=== PATIENT | male | born 1980 | race Caucasian/White ===

== ENCOUNTER 2017-09-29 11:25 | Inpatient (IN) | payer OTHER ==
[2017-09-29 12:39] VITALS: BMI 21.2
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
[2017-09-29] MEDS ORDERED: LOPERAMIDE HCL 2 MG CAPSULE PO PRN (14:46)
[2017-09-29] MEDS ORDERED: MAGNESIUM HYDROX 2400MG/30ML ORAL SUSPENSION 30 ML CUP PO PRN (14:46)
[2017-09-29] MEDS ORDERED: P-EPHED 60MG/TRIPROLIDI 2.5MG TABLET PO PRN (14:46)
[2017-09-29] MEDS ORDERED: MENTHOL/PHENOL 1 EACH UD MM PRN (14:46)
[2017-09-29] MEDS ORDERED: MAGNESIUM CITRATE 300 ML BOTTLE PO PRN (14:46)
[2017-09-29] MEDS ORDERED: IBUPROFEN 400 MG TABLET (FP) PO PRN (14:46)
[2017-09-29] MEDS ORDERED: NICOTINE POLACRILEX 2 MG GUM BUC PRN (14:46)
[2017-09-29] MEDS ORDERED: ACETAMINOPHEN 325 MG TABLET (FP) PO PRN (14:46)
[2017-09-29] MEDS ORDERED: guaiFENesin/D-METHORPHAN HB 10 ML UNIT-DOSE CUPS PO PRN (14:46)
[2017-09-29] MEDS ORDERED: MAG HYDROX/AL HYDROX/SIMETH 30 ML UNIT-DOSE CUP PO PRN (14:46)
[2017-09-29] MEDS ORDERED: IBUPROFEN 600 MG TABLET (FP) PO PRN (14:51)
[2017-09-29] MEDS ORDERED: METHADONE HCL 10 MG TABLET (FOR DETOX USE ONLY) PO ONE ×2 (15:45→23:00)
[2017-09-29] MEDS ORDERED: diazePAM 5 MG TABLET PO ONE (15:45)
[2017-09-29] MEDS: NICOTINE 14 MG/24 HOURS TOPICAL PATCH TD SCH (17:37)
[2017-09-29] MEDS: CEPHALEXIN MONOHYDRATE 500 MG CAPSULE (UD) PO SCH ×2 (17:39→23:02)
[2017-09-29] MEDS ORDERED: MELATONIN 5 MG TABLETS PO PRN (22:00)
[2017-09-29] MEDS: THIAMINE HCL 100 MG TABLET (FP) PO SCH (22:26)
[2017-09-29] MEDS: GABAPENTIN 400 MG CAPSULE (FP) PO SCH (22:27)
[2017-09-29] MEDS: diazePAM 5 MG TABLET PO SCH (22:27)
[2017-09-30 02:34] LABS: URINE APPEARANCE CLEAR; URINE BILIRUBIN NEGATIVE (<2.0 mg/dL); URINE COLOR YELLOW; URINE GLUCOSE (UA) NEGATIVE (NEGATIVE); URINE KETONE NEGATIVE (NEGATIVE); URINE LEUK ESTERASE NEGATIVE (NEGATIVE); URINE NITRITE NEGATIVE (NEGATIVE); URINE PROTEIN NEGATIVE (NEGATIVE); URINE UROBILINOGEN NEGATIVE mg/dL (0.2-1.0)
[2017-09-30] MEDS: GABAPENTIN 400 MG CAPSULE (FP) PO SCH ×3 (05:43→22:03)
[2017-09-30] MEDS: diazePAM 5 MG TABLET PO SCH ×3 (05:43→22:04)
[2017-09-30] MEDS: CEPHALEXIN MONOHYDRATE 500 MG CAPSULE (UD) PO SCH ×3 (08:00→23:42)
[2017-09-30] MEDS ORDERED: METHADONE HCL 10 MG TABLET (FOR DETOX USE ONLY) PO SCH (10:00)
[2017-09-30 10:04] LABS: HEMATOCRIT 40.5 % (35.4-49); HEMOGLOBIN 13.5 GM/dL (11.7-16.9); MCH 30.5 pg (25.7-33.7); MCHC 33.4 g/dl (32.0-35.9); MEAN CELL VOLUME 91.2 fl (80-96); MEAN PLT VOLUME 8.9 fl (7.5-11.1); PLATELET COUNT 223 K/MM3 (134-434); RBC 4.44 M/mm3 (4.00-5.60); RDW 13.7 % (11.9-15.9); WHITE BLOOD COUNT 8.4 K/mm3 (4.0-10.0)
[2017-09-30] MEDS: PRENATAL VITAMINS W/ FOLIC ACID TABLET (FP) PO SCH (10:07)
[2017-09-30] MEDS: NICOTINE 14 MG/24 HOURS TOPICAL PATCH TD SCH (10:09)
[2017-09-30] MEDS: diazePAM 5 MG TABLET PO PRN ×2 (10:09→20:56)
--- NOTE | 2017-09-30 10:21 | EKG ---
Test Reason : Blood Pressure : / mmHG Vent. Rate : 057 BPM Atrial Rate : 057 BPM P-R Int : 000 ms QRS Dur : 096 ms QT Int : 414 ms P-R-T Axes : 000 054 051 degrees QTc Int : 402 ms SINUS BRADYCARDIA WITH PREMATURE ATRIAL COMPLEXES IN A PATTERN OF BIGEMINY NO PREVIOUS ECGS AVAILABLE Confirmed by LUCILA SHEIKH MD ([id number]) on 09/30/2017 10:21:44 AM Referred By: Confirmed By:LUCILA SHEIKH MD
[2017-09-30 10:25] LABS: CHLORIDE 108 mmol/L (98-107); POTASSIUM 4.4 mmol/L (3.5-5.1); SODIUM 142 mmol/L (136-145)
[2017-09-30 10:49] LABS: ALBUMIN 3.3 g/dl (3.4-5.0); ALK PHOS 100 U/L (45-117); ANION GAP 8 (8-16); BILIRUBIN,TOTAL 0.4 mg/dL (0.2-1.0); BLOOD UREA NITROGEN 10 mg/dL (7-18); CALCIUM 8.4 mg/dL (8.5-10.1); CO2 26 mmol/L (21-32); CREATININE 0.9 mg/dL (0.7-1.3); GLUCOSE,RANDOM 110 mg/dL (74-106); SGOT/AST 30 U/L (15-37); SGPT/ALT 58 U/L (12-78); TOT PROT 6.2 g/dl (6.4-8.2)
--- NOTE | 2017-09-30 11:06 | PN ---
[facility] CIWA - CIWA Score Nausea/Vomitin-No Nausea/No Vomiting Muscle Tremors: 3 Anxiety: 4-Mod. Anxious/Guarded Agitation: 4-Moderately Restless Paroxysmal Sweats: 1-Minimal Palms Moist Orientation: 0-Oriented Tacttile Disturbances: 0-None Auditory Disturbances: 0-None Visual Disturbances: 0-None Headache: 0-None Present CIWA-Ar Total Score: 12 S COWS - Scale Resting Pulse: 0= [place] 80 or Below Sweatin= Chills/Flushing Restless Observation: 3= Extraneous Movement Pupil Size: 0= Normal to Room Light Bone or Joint Aches: 4=Acute Joint/Muscle Pain Runny Nose/ Eye Tearin= Nasal Congestion GI Upset > 30mins: 0= None Tremor Observation of Outstretched Hands: 2= Slight Tremor Visible Yawning Observation: 1= 1-2x During Session Anxiety or Irritability: 2=Irritable/Anxious Goose Flesh Skin: 0=Smooth Skin COWS Score: 14 [facility] Progress Note (SOAP) Subjective: ANXIETY, SWEATS/CHILLS,FATIGUE,BODY ACHES,INTERMITTENT SLEEP. Objective: 09/30/17 11:06 Vital Signs 09/30/17 09/30/17 09/30/17 03:30 07:36 09:35 Temperature 98.3 F 96.9 F L Pulse Rate 54 L 69 Respiratory 18 18 18 Rate Blood Pressure 98/62 111/73 Laboratory Tests 09/29/17 09/30/17 09/30/17 23:54 07:30 07:30 WBC 8.4 RBC 4.44 Hgb 13.5 Hct 40.5 MCV 91.2 MCH 30.5 MCHC 33.4 RDW 13.7 Plt Count 223 MPV 8.9 Sodium 142 Potassium 4.4 Chloride 108 H Carbon Dioxide 26 Anion Gap 8 BUN 10 D Creatinine 0.9 Creat Clearance w eGFR > 60 Random Glucose 110 H D Calcium 8.4 L Total Bilirubin 0.4 D AST 30 D ALT 58 Alkaline Phosphatase 100 Total Protein 6.2 L Albumin 3.3 L Urine Color Yellow Urine Appearance Clear Urine pH 5.0 Ur Specific [place] 1.017 Urine Protein Negative Urine Glucose (UA) Negative Urine Ketones Negative Urine Blood Negative Urine Nitrite Negative Urine Bilirubin Negative Urine Urobilinogen Negative Ur Leukocyte Esterase Negative Assessment: 09/30/17 11:06 WITHDRAWAL SX Plan: CONTINUE DETOX
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
[2017-09-30] MEDS ORDERED: ZOLPIDEM TARTRATE 10 MG TABLET (PARK CARE ONLY) PO PRN (22:00)
[2017-09-30] MEDS: THIAMINE HCL 100 MG TABLET (FP) PO SCH (22:03)
[2017-10-01] MEDS: GABAPENTIN 400 MG CAPSULE (FP) PO SCH ×2 (05:37→13:41)
[2017-10-01] MEDS: diazePAM 5 MG TABLET PO PRN ×3 (05:38→17:15)
[2017-10-01] MEDS: CEPHALEXIN MONOHYDRATE 500 MG CAPSULE (UD) PO SCH ×2 (08:17→16:32)
[2017-10-01 09:20] VITALS: PULSE 84
[2017-10-01] MEDS ORDERED: diazePAM 5 MG TABLET PO SCH (10:00)
[2017-10-01] MEDS ORDERED: BACITRACIN 0.9 GM PACKET TP SCH (10:00)
[2017-10-01] MEDS ORDERED: METHADONE HCL 5 MG TABLET (FOR DETOX USE ONLY) PO SCH (10:00)
[2017-10-01] MEDS: PRENATAL VITAMINS W/ FOLIC ACID TABLET (FP) PO SCH (10:11)
[2017-10-01] MEDS: NICOTINE 14 MG/24 HOURS TOPICAL PATCH TD SCH (10:12)
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
[2017-10-01] MEDS ORDERED: CEPHALEXIN MONOHYDRATE 500 MG CAPSULE (UD) PO SCH (16:01)
[2017-10-01 17:19] VITALS: BP 99/59; TEMP 97.6
--- NOTE | 2017-10-01 19:18 | DS ---
[facility] Detox Discharge Summary Admission Date: 09/29/17 - History Present History: Alcohol Dependence, Cannabis Dependence, Cocaine Dependence, Opioid Dependence, Sedative Dependence Additional Comments: Patient left AMA. Patient medically stable, denies suicidal / homicidal ideation. Patient was educated on the risk of not completing treatment including overdose or injury. If worsening symptoms are present patient to follow up with local ED, urgent care or PMD. Patient verbalizes understanding. - Physical Exam Results Vital Signs: Vital Signs Temperature 97.6 F 10/01/17 17:18 Pulse Rate 84 10/01/17 17:18 Respiratory Rate 16 10/01/17 17:18 Blood Pressure 99/59 10/01/17 17:18 O2 Sat by Pulse Oximetry (%) Pertinent Admission Physical Exam Findings: Vital Signs Temperature 97.6 F 10/01/17 17:18 Pulse Rate 84 10/01/17 17:18 Respiratory Rate 16 10/01/17 17:18 Blood Pressure 99/59 10/01/17 17:18 O2 Sat by Pulse Oximetry (%) Laboratory Last Values WBC 8.4 K/mm3 (4.0-10.0) 09/30/17 07:30 RBC 4.44 M/mm3 (4.00-5.60) 09/30/17 07:30 Hgb 13.5 GM/dL (11.7-16.9) 09/30/17 07:30 Hct 40.5 % (35.4-49) 09/30/17 07:30 MCV 91.2 fl (80-96) 09/30/17 07:30 MCH 30.5 pg (25.7-33.7) 09/30/17 07:30 MCHC 33.4 g/dl (32.0-35.9) 09/30/17 07:30 RDW 13.7 % (11.9-15.9) 09/30/17 07:30 Plt Count 223 K/MM3 (134-434) 09/30/17 07:30 MPV 8.9 fl (7.5-11.1) 09/30/17 07:30 Sodium 142 mmol/L (136-145) 09/30/17 07:30 Potassium 4.4 mmol/L (3.5-5.1) 09/30/17 07:30 Chloride 108 mmol/L (98-107) H 09/30/17 07:30 Carbon Dioxide 26 mmol/L (21-32) 09/30/17 07:30 Anion Gap 8 (8-16) 09/30/17 07:30 BUN 10 mg/dL (7-18) D 09/30/17 07:30 Creatinine 0.9 mg/dL (0.7-1.3) 09/30/17 07:30 Creat Clearance w eGFR > 60 (>60) 09/30/17 07:30 Random Glucose 110 mg/dL (74-106) H D 09/30/17 07:30 Calcium 8.4 mg/dL (8.5-10.1) L 09/30/17 07:30 Total Bilirubin 0.4 mg/dL (0.2-1.0) D 09/30/17 07:30 AST 30 U/L (15-37) D 09/30/17 07:30 ALT 58 U/L (12-78) 09/30/17 07:30 Alkaline Phosphatase 100 U/L (45-117) 09/30/17 07:30 Total Protein 6.2 g/dl (6.4-8.2) L 09/30/17 07:30 Albumin 3.3 g/dl (3.4-5.0) L 09/30/17 07:30 Urine Color Yellow 09/29/17 23:54 Urine Appearance Clear 09/29/17 23:54 Urine pH 5.0 (5.0-8.0) 09/29/17 23:54 Ur Specific [place] 1.017 (1.001-1.035) 09/29/17 23:54 Urine Protein Negative (NEGATIVE) 09/29/17 23:54 Urine Glucose (UA) Negative (NEGATIVE) 09/29/17 23:54 Urine Ketones Negative (NEGATIVE) 09/29/17 23:54 Urine Blood Negative (NEGATIVE) 09/29/17 23:54 Urine Nitrite Negative (NEGATIVE) 09/29/17 23:54 Urine Bilirubin Negative (<2.0 mg/dL) 09/29/17 23:54 Urine Urobilinogen Negative mg/dL (0.2-1.0) 09/29/17 23:54 Ur Leukocyte Esterase Negative (NEGATIVE) 09/29/17 23:54 RPR Titer Nonreactive (NONREACTIVE) 06/01/18 07:30 - Medication Discharge Medications: Ambulatory Orders Gabapentin [Neurontin -] 800 mg PO TID #30 capsule 07/13/15 Cephalexin [Keflex] 500 mg PO Q8H 09/29/17 Ibuprofen [Motrin -] 600 mg PO Q6H 09/29/17 - Diagnosis (1) Alcohol dependence with uncomplicated withdrawal Current Visit: Yes Status: Acute (2) Opioid dependence with withdrawal Current Visit: Yes Status: Acute (3) Sedative/hypnotic withdrawal without complication Current Visit: Yes Status: Acute (4) Cannabis dependence Current Visit: Yes Status: Chronic (5) Chronic back pain Current Visit: Yes Status: Chronic Qualifiers: Back pain location: low back pain (6) GERD (gastroesophageal reflux disease) Current Visit: Yes Status: Chronic Qualifiers: Esophagitis presence: esophagitis presence not specified Qualified Code(s) : K21.9 - Gastro-esophageal reflux disease without esophagitis (7) Nicotine dependence Current Visit: Yes Status: Chronic Qualifiers: Nicotine product type: cigarettes Substance use status: in withdrawal Qualified Code(s): F17.213 - Nicotine dependence, cigarettes, with withdrawal - AMA Did Patient Leave Against Medical Advice: Yes
--- NOTE | 2017-10-02 22:46 | EKG ---
Test Reason : Blood Pressure : / mmHG Vent. Rate : 069 BPM Atrial Rate : 069 BPM P-R Int : 132 ms QRS Dur : 102 ms QT Int : 386 ms P-R-T Axes : 075 065 062 degrees QTc Int : 413 ms NORMAL SINUS RHYTHM NORMAL ECG WHEN COMPARED WITH ECG OF 29-SEP-2017 17:21, PREMATURE ATRIAL COMPLEXES ARE NO LONGER PRESENT Confirmed by LOVE WASHINGTON MD ([id number]) on 10/02/2017 10:46:27 PM Referred By: Confirmed By:LOVE WASHINGTON MD
[2017-10-03] MEDS ORDERED: METHADONE HCL 10 MG TABLET (FOR DETOX USE ONLY) PO SCH (10:00)
[2017-10-03] MEDS ORDERED: diazePAM 5 MG TABLET PO SCH (10:00)
[2017-10-04] MEDS ORDERED: METHADONE HCL 5 MG TABLET (FOR DETOX USE ONLY) PO SCH (06:00)
== END 2017-10-01 19:35 | disposition left against medical advice (07) | DRG 770 ==
LOC: YASAS 11:25 → Y3N 15:34
PROVIDERS: ADMIT Internal Medicine; ATTEND Surgery
PROC: HZ2ZZZZ Detoxification Services for Substance Abuse Treatment (ICD-10-PCS; principal; 2017-09-29)
DX: F11.23 Opioid dependence with withdrawal (principal); F10.230 Alcohol dependence with withdrawal, uncomplicated; F14.20 Cocaine dependence, uncomplicated; F12.20 Cannabis dependence, uncomplicated; F17.213 Nicotine dependence, cigarettes, with withdrawal; F34.1 Dysthymic disorder; F19.282 Other psychoactive substance dependence with psychoactive substance-induced sleep disorder; K21.9 Gastro-esophageal reflux disease without esophagitis; M54.5 Low back pain; G89.29 Other chronic pain; Z87.828 Personal history of other (healed) physical injury and trauma; Z59.0 Homelessness
CPT/HCPCS: 36415; 80053; 81003; 85027; 86593; 93005; 93010